=== PATIENT | female | born 2000 | race Caucasian/White ===

== ENCOUNTER 2023-09-24 17:32 | Emergency (ER) | payer BC, SELFPAY ==
[2023-09-24 17:34] VITALS: BP 106/81
[2023-09-24 17:55] LABS: Urine Albumin Trace (Neg - Trace); Urine Bilirubin 1+ (Negative); Urine Character Slightly Cloudy (Clear); Urine Color Yellow; Urine Glucose Negative (Negative); Urine Ketone 1+ (Negative); Urine Leukocyte Trace (Negative); Urine Nitrite Negative (Negative); Urine Occult Blood 4+ (Negative); Urine Specific Gravity 1.025 (<1.030); Urine Urobilinogen Negative (Neg - 1+)
[2023-09-24 17:59] LABS: HCG, Urine Qualitative Screen Negative
[2023-09-24 18:09] LABS: Urine Red Blood Cell >100 /HPF (0-2); Urine Squamous Cell 0-2 /LPF (Few); Urine White Cell 0-2 /HPF (0-5)
--- NOTE | 2023-09-24 18:43 | ED.GENMED ---
History of Present Illness
General
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
Source: patient
Exam Limitations: none
Time Seen by Provider: 09/24/23 18:05
Travel History
Have you had any contact with someone who has COVID-19?: No
Do you have any symptoms of coronavirus? Fever > 100 degrees, chills, cough, shortness of breath, sore throat, loss of taste or smell, muscle aches, or headache?: No
History of Present Illness
History of Present Illness:
This is a 23 year old female that comes in with c/o blood in her urine. States that she has a respiratory infection and she went to on Thursday. states that she was given Prednisone and a Z-pack. Then today she had some abd cramping and she found
blood in her urine. States that she had her period on the . States that she has had nausea, and a cough. Denies any fever, chills, chest pain, SOB, vomiting, diarrhea, headache, dizziness, urinary burning.
Past History
Past History
ED Past Medical History: None
ED Past Surgical History: None
Social History
Tobacco: Non-smoker
Alcohol: None
Personal: Single
Living: with family
Review of Systems
Review of Systems
All Other Systems: ROS reviewed and negative except as documented in HPI and ROS
Constitutional: Reports no symptoms; Denies fever or chills
EENT: Reports no symptoms
Respiratory: Reports cough; Denies trouble breathing
Cardiac: Reports no symptoms; Denies chest pain
ABD/GI: Reports abdominal pain and nausea; Denies vomiting or diarrhea
: Reports bleeding (in her urine); Denies dysuria, frequency or urgency
Musculoskeletal: Reports no symptoms
Skin: Reports no symptoms
Neurological: Reports no symptoms; Denies dizzy or headache
Psychiatric: Reports no symptoms
Phy Exam
General Physical Exam
General Presentation: well appearing and no apparent distress
General age: appears stated age
General Skin: warm and dry
General Habitus: normal
General Mental: alert
General Hydration: appears well hydrated
ENT Exam
ENT Exam: TM's normal, pharynx normal and neck supple
Eye Exam
Eye Exam: EOMI
Cardiovascular Exam
Cardiovascular Exam: regular rate/rhythm, no edema, no murmur and normal peripheral pulses
Pulmonary Exam
Pulmonary Exam: lungs clear, no respiratory distress, no rales, chest non tender, no crackles, no rhonchi, no wheezing and no cough
Gastrointestinal Exam
Gastrointestinal Exam: normal bowel sounds, soft, no organomegaly, no pulsatile mass, non distended and tender (Slight left sided tenderness with palpation)
Musculoskeletal Exam
Musculoskeletal Exam: full ROM and no edema
Skin Exam
Skin Exam: normal color, warm/dry, no rash and no petechia
Psychiatric Exam
Psychiatric Exam: normal mood/affect
Course
Orders/Labs/Results
Orders:
Orders
09/24/23 17:34
Test Result ONCE
09/24/23 17:43
HCG, Urine Qualitative Screen Urgent
Date Specimen was Collected: 09/24/23
Time Specimen was Collected: 17:34
Urinalysis Reflex To Culture Urgent
Date Specimen was Collected: 09/24/23
Time Specimen was Collected: 17:34
Urine Microscopic Reflex Cult Urgent
09/24/23 18:42
CT Abd/pel Without Iv Or Oral Urgent
Comment:
Reason For Exam: blood in urine, lower abd pain, more left sided
09/24/23 18:43
0.9% Sodium Chloride 500 ml [Nss] 500 ml IV BOLUS
09/24/23 19:24
Complete Blood Count/With Diff Urgent
09/24/23 19:42
Comprehensive Metabolic Panel Urgent
Abnormal Lab Results
09/24/23
17:43
Urine Ketones 1+ A
(Negative)
Ur Occult Blood Reflex 4+ A
(Negative)
Urine Bilirubin 1+ A
(Negative)
Leukocyte Esterase Rfl Trace A
(Negative)
Urine RBC >100 A /HPF
(0-2)
Urine negative for infection. Positive for blood. HCG negative,
Vital Signs
Initial and Last Documented VS:
Initial Vital Signs
Temp Pulse Resp BP Pulse Ox
98.4 F 88 16 106/81 99
09/24/23 17:34 09/24/23 17:34 09/24/23 17:34 09/24/23 17:34 09/24/23 17:34
Last Documented Vital Signs
Temp Pulse Resp BP Pulse Ox
98.4 F 88 16 106/81 99
09/24/23 17:34 09/24/23 17:34 09/24/23 17:34 09/24/23 17:34 09/24/23 17:34
MDM/Problems Addressed
Differential Diagnosis Includes:
Renal calculus, Small vaginal scratch
MDM/Problems Addressed:
This is a 23 year old female that comes in with c/o blood in her urine. states that she has had this on and off lower abd discomfort today.
Will check labs, urine and CT for renal calculus. Will also give IV fluids
Back into see patient. Explained that her CT was normal. Explained that there is no infection in the urine and that this could just be due to a scratch. Patient to follow up with the PCP and if this continues will be given the name of a Urologist.
Patient to return with increased bleeding or any other concerns
Chronic conditions affecting care:
NA
Acute Exacerbation and/or Progression of Chronic Illness:
NA
*Radiology
Radiology exam reviewed: radiology read reviewed (CT-Normal. There are no obstructing renal or ureteral calculi. There is no hydronephrosis or hydroureter. )
*Pulse Oximetry
Patient hypoxic: no
*EKG
Interpreted by ED Provider?: NA
Rate: EKG- N/A
*Hair Boiler Interpretation
Rate: Hair Boiler- N/A
*Critical Care Note
Total Time (30-74mins, 75-104mins- exclusive of procedures): Not Applicable
ED Attending Note
-
Portions of this chart may have been created with voice recognition software.� Occasional wrong word or��sound alike� substitutions may have occurred due to the inherent limitations of voice recognition software.
Discharge Plan
Departure
Patient Disposition: Home (Routine Discharge)
Date of Disposition: 09/24/23
Time of Disposition: 21:27
Patient with high blood pressure during this ER visit?: No
Condition: Good
Covid-19: Not Applicable
Discharge Problem:
Blood in urine
Instructions: Blood in the Urine (Hematuria), Adult (DC)
Referrals:
Pelon Dumont MD [Active] - As needed
NONE,* [Family Provider] -
Activity Restrictions/Additional Instructions:
As discussed, your urine is negative for infection but there is blood noted. Your CT is negative for any renal calculus or any other acute process. Please increase your water intake to 8-8oz glasses daily. Follow up with the family doctor for
recheck. If this continues you may wish to see a Urologist. IF YOU HAVE ANY OTHER CONCERNS PLEASE RETURN TO THE EMERGENCY ROOM.
Interventions
Interventions:
*Risk Screen - Suicide Last Done: 09/24/23 17:34
*General Assessment Last Done: 09/24/23 17:34
*Neglect/Abuse Screening Last Done: 09/24/23 17:34
*ED COVID-19 Vaccine History Last Done: 09/24/23 17:34
Discharge Date and Time
Print Language: IRISH
== END 2023-09-24 21:37 | disposition home or self-care (01) ==
LOC: EMR 17:32
PROVIDERS: Emergency Medicine; EMERGENCY PHYSICIAN Emergency Medicine
DX: R31.9 Hematuria, unspecified (principal); R10.30 Lower abdominal pain, unspecified; R11.0 Nausea; R05.9 Cough, unspecified
CPT/HCPCS: 99284; 74176; 81003; 81015; 81025